=== PATIENT | male | born 1995 | race Two or more races ===

== ENCOUNTER 2020-12-20 18:45 | Emergency (ER) | payer SELFPAY ==
[~2020-12-20] VITALS: Ht 162.6 cm; Wt 59.0 kg
[2020-12-20 20:00] VITALS: BP 123/65
[2020-12-20] MEDS ORDERED: IBUPROFEN 200 MG TABLET. PO ONE (20:15)
--- NOTE | 2020-12-20 20:18 | PHYS DOC ---
Past Medical History Past Medical History: No Pertinent History Past Surgical History: No Surgical History Smoking Status: Never Smoker Alcohol Use: Occasionally General Adult EDM: Chief Complaint: LOWEREXTREMITY INJURY HPI: HPI: Patient is a 25 year old male who presents with was playing with his older brother when he fell to the ground and his body went one way and his left knee twisted on the other way. This happened yesterday. He denies hitting his head or LOC. He only complains of left medial and dorsal pain. He rates his pain about 8 out of 10. He did not take any medication for. He is able to walk on it and has range of motion of it but it is painful. Denies any numbness or tingling or focal weakness. Denies any past medical history. Review of Systems: Review of Systems: Constitutional: Denies fever or chills. [] Eyes: Denies change in visual acuity. [] HENT: Denies nasal congestion or sore throat. [] Respiratory: Denies cough or shortness of breath. [] Cardiovascular: Denies chest pain or edema. [] GI: Denies abdominal pain, nausea, vomiting, bloody stools or diarrhea. [] : Denies dysuria. [] Musculoskeletal: Denies back pain or + left knee joint pain. [] Integument: Denies rash. [] Neurologic: Denies headache, focal weakness or sensory changes. [] Endocrine: Denies polyuria or polydipsia. [] Lymphatic: Denies swollen glands. [] Psychiatric: Denies depression or anxiety. [] Heart Score: C/O Chest Pain: No Risk Factors: Risk Factors: DM, Current or recent (<one month) smoker, HTN, HLP, family history of CAD, obesity. Risk Scores: Score 0 - 3: 2.5% MACE over next 6 weeks - Discharge Home Score 4 - 6: 20.3% MACE over next 6 weeks - Admit for Clinical Observation Score 7 - 10: 72.7% MACE over next 6 weeks - Early Invasive Strategies Current Medications: Current Medications Medications (Trade) Dose Ordered Sig/Paulina Start Time Stop Time Status Last Admin Dose Admin Ibuprofen (Motrin) 600 mg 1X ONCE 12/20/20 20:15 12/20/20 20:16 Allergies: Allergies: Allergies Coded Allergies Type Severity Reaction Last Updated Verified No Known Drug Allergies 12/20/20 No Physical Exam: PE: Constitutional: Well developed, well nourished, no acute distress, non-toxic appearance. [] HENT: Normocephalic, atraumatic, bilateral external ears normal, oropharynx moist, no oral exudates, nose normal. [] Eyes: PERRLA, EOMI, conjunctiva normal, no discharge. [] Neck: Normal range of motion, no tenderness, supple, no stridor. [] Cardiovascular:Heart rate regular rhythm, no murmur [] Lungs & Thorax: Bilateral breath sounds clear to auscultation [] Abdomen: Bowel sounds normal, soft, no tenderness, no masses, no pulsatile masses. [] Skin: Warm, dry, no erythema, no rash. [] Back: No tenderness, no CVA tenderness. [] Extremities: Left knee medial tenderness, no cyanosis, no clubbing, ROM intact, no edema. [] Neurologic: Alert and oriented X 3, normal motor function, normal sensory function, no focal deficits noted. [] Psychologic: Affect normal, judgement normal, mood normal. [] Current Patient Data: Vital Signs: Vital Signs Date Time Temp Pulse Resp B/P (MAP) Pulse Ox O2 Delivery O2 Flow Rate FiO2 12/20/20 20:00 97.8 76 12 123/65 (84) 97 Room Air 97.8 EKG: EKG: [] Radiology/Procedures: Radiology/Procedures: [] Impression: [facility] [address] [facility] [place] [address] IMAGING REPORT Signed PATIENT: NUNU GIRALDOUNT: [id number] : 1995 LOCATION: ER AGE: 25 SEX: M EXAM STATUS: REG ER ORD. PHYSICIAN: FINA SERRANO APRN REASON: PAIN AFTER TWISTING INJURY PROCEDURE: KNEE LEFT 4V Examination: 4 views of the left knee HISTORY: History of injury, pain COMPARISON: None available FINDINGS: The alignment of the knee joint grossly appears unremarkable. No acute fracture or dislocation identified. Impression: No acute osseous findings. Electronically signed by: Lenny Yang MD (12/20/2020 8:49 PM) [id number] DICTATED and SIGNED BY: LENNY YANG MD DATE: 12/20/20 [id number] 0 Course & Med Decision Making: Course & Med Decision Making Pertinent Labs and Imaging studies reviewed. (See chart for details) See HPI. Alert and oriented x4. Ambulatory with a steady gait. Skin pink warm and dry. No deformity to the knee joint. No swelling or bruising to the knee joint. No abrasions. Full range of motion but painful. No laxity in the joint. Skin pink warm and dry. Popliteal pulse strong present. Cap refill less than 2 seconds. [] Dragon Disclaimer: Dragon Disclaimer: This electronic medical record was generated, in whole or in part, using a voice recognition dictation system. Departure Departure Impression: Primary Impression: Knee pain, left Qualified Codes: M25.562 - Pain in left knee Disposition: HOME / SELF CARE / HOMELESS Condition: STABLE Referrals: NO PCP (PCP) LAVERN RAMIREZ MD Patient Instructions: Knee Immobilization, Knee Sprain Additional Instructions: Follow-up with orthopedic doctor. Use ice to help with pain. Use ibuprofen to help with pain. Rest the extremity. Scripts Ibuprofen (IBUPROFEN) 600 Mg Tablet 600 MG PO PRN Q6HRS PRN for INFLAMMATION, #20 TAB Prov: FINA SERRANO APRN 12/20/20 FINA SERRANO APRN Dec 20, 2020 20:17
--- NOTE | 2020-12-20 20:52 | RAD ---
Examination: 4 views of the left knee HISTORY: History of injury, pain COMPARISON: None available FINDINGS: The alignment of the knee joint grossly appears unremarkable. No acute fracture or dislocation identi fied. Impression: No acute osseous findings. Electronically signed by: Lenny Yang MD (12/20/2020 8:49 PM) [id number]
[2020-12-20] MEDS ORDERED: IBUP-1007 PO (20:56)
== END 2020-12-20 21:37 | disposition home or self-care (01) ==
LOC: ER 18:45
DX: M25.562 Pain in left knee (principal)
CPT/HCPCS: 29505; 73564; 99283